=== PATIENT | female | born 1960 | race Caucasian/White ===

== ENCOUNTER 2019-08-19 12:46 | Outpatient (CLI) | payer OTHER, SELFPAY ==
--- NOTE | ~2019-08-19 | XR_ITS ---
XR knee RT 3V DATE: 08/19/2019 13:05 INDICATION: Right knee pain. No injury. TECHNIQUE: 3 views COMPARISON: None FINDINGS: There is suprapatellar knee joint effusion. There is mild periarticular spurring of the pat kayla. Knee joint spaces are relatively preserved. No fracture, dislocation, periosteal reaction or bone destruction, radiopaque intra-articular loose b bryant or chondrocalcinosis is detected. IMPRESSION: Suprapatellar knee joint effusion Reviewed, dictated and finalized at location B.
== END 2019-08-19 12:47 | disposition home or self-care (01) ==
PROVIDERS: PCP Internal Medicine; Visit Provider Nurse Practitioner
DX: M25.461 Effusion, right knee (principal)
CPT/HCPCS: 73562

== ENCOUNTER 2020-03-03 13:23 | Outpatient (CLI) | payer OTHER, SELFPAY ==
--- NOTE | 2020-03-04 14:03 | WPDSIXMINUTE ---
Six Minute Walk This is a 6 minutes walk for exertional dyspnea. Findings: The patient's resting room air oxygen saturation measured by pulse oximetry was 94% and her heart rate was 97 bpm. Patient ambulated on room air for 5 minutes and then had to rest in a chair for 2 minutes. In the five minutes she walked 46 meters and saturations remained 90% to 93%. Heart rate at the end of the five minutes was 109. There are no prior studies for comparison.
== END 2020-03-03 13:24 | disposition home or self-care (01) ==
PROVIDERS: PCP Internal Medicine; Visit Provider Internal Medicine
DX: R06.02 Shortness of breath (principal); Z90.2 Acquired absence of lung [part of]; Z98.890 Other specified postprocedural states
CPT/HCPCS: 94618

== ENCOUNTER → 2022-03-27 13:37 | Outpatient (CLI) | payer OTHER, SELFPAY ==
--- NOTE | ~2022-03-27 | MM_ITS ---
EXAMINATION: MM screening blanche BI w christen HISTORY: Screening TECHNIQUE: Craniocaudal and mediolateral oblique 3-D tomosynthesis images were obtained and synthetic 2-D images were generated. CAD analysis was submitted and interpreted. COMPARISON: Comparison to multiple prior studies sequentially, with oldest reviewed study dated 12/12. BREAST PARENCHYMAL COMPOSITION: Breast composed of scattered areas of fibroglandular density FINDINGS: There is no evidence of suspicious mass, calcification, or architectural distortion to sugg est malignancy in either breast. There has been no suspicious interval change. IMPRESSION: 1. No mammographic evidence of malignancy. 2. Recommend routine screening mammography in one year. BI-RADS Category 1: Negative Reviewed, dictated and finalized at location A. SPORT ASSISTANT
== END ==
PROVIDERS: PCP Internal Medicine; Visit Provider Internal Medicine
DX: Z12.31 Encounter for screening mammogram for malignant neoplasm of breast (principal)
CPT/HCPCS: 77063; 77067

== ENCOUNTER 2022-04-11 12:30 | Outpatient (RCR) | payer OTHER, SELFPAY ==
--- NOTE | 2022-01-30 13:36 | PTOPEVAL1 ---
Assessment and note entered by Meghan Marshall, PT Evaluation Information Assessment Status Evaluation Diagnosis dizziness Onset June 2021 Subjective Information Rahel reports: problems with dizziness for about past 5 years, but increase more lately; is not able to do all her exercises for fitness Dizziness Handicap Index self rating functional score of 24/100 Reported Pain Level Pain Score 3/10 Self Report Additional Pain Score Comments stiffness of neck Assessment PT Clinical Summary Rahel has the diagnosis of dizziness. Her self functional score with the Dizziness Handicap Index is 24/100= low perception of limitation. She reports problems with dizziness over the past 4-5 years, but recently worse. Her symptoms increase with lying flat in bed, looking up and bending down to the floor. With the evaluation, she has positive [place] to the L with severe nystagmus of eyes and vertigo symptoms. Performed Eply maneuver: rep 1- cleared 1 min & 10 sec, severe nystagmus; rep 2- cleared 40 sec, with slight nystagmus; rep 3- cleared 28 sec with slight nystagmus; Education provided to pt. Skilled PT services are indicated for clearing of anterior/posterior canal and further assessment of her vestibular system. Plan of Care Interventions Neuro Re-education,Patient/Caregiver Education, Therapeutic Activities PT Services Indicated Yes Treatment Frequency and 0-2x/wk for 5 weeks, depending upon her vestibular Duration s/s These treatments will address the objective and functional deficits as defined above. The patient will be advanced safely and appropriately in order for the patient to progress towards his/her prior level of function. Additional exercises will be introduced and as well as a comprehensive home exercise program upon discharge, if needed, ?to ensure carryover of functional gains achieved in the clinic. This treatment plan has been reviewed and agreement upon by the patient.
--- NOTE | 2022-03-06 13:24 | PTOPPROG ---
Assessment and note entered by Meghan Marshall, PT Evaluation Information Assessment Status Progress Diagnosis dizziness Onset June 2021 Subjective Information Rahel reports: yesterday, for about 6 hours had funny feeling like going in elevator; get sinus issues and headaches with changes in the weather; after last session, canal clearing- only felt off a few hours;was fine over the weekend until yesterday; going through a lot of stress- going through divorce; sometimes wake up from sleeping with body hot all over, from the inside out--? her thyroid issues; can sleep only on her R side because dizzy with on her back and on her L side; Assessment PT Clinical Summary Rahel has received 6 PT sessions. There is no dizziness reported with: - pick item up off floor, reach up and look to ceiling, walking 50' with 3 reps head motions: R/L and up/down; Dizziness Handicap Index; 4/100; dizziness increase with head: turn head to L when lying on her back and lying flat on her back; -------- Compared to the initial evaluation, she has improved with the Dizziness self assessment from 21 to 4/100; no longer has any issues with walking and head turn R/L and up/down or picking something up off the floor; With today's Babatunde hallpike testing to the L, she had nystagmus and vestibular symptoms. The goals were partially achieved. Continue PT vestibular treatment. Plan of Care Interventions Neuro Re-education,Patient/Caregiver Education, Therapeutic Activities,Therapeutic Exercise PT Services Indicated Yes Treatment Frequency and 1x/wk for 5 weeks Duration These treatments will address the objective and functional deficits as defined above. The patient will be advanced safely and appropriately in order for the patient to progress towards his/her prior level of function. Additional exercises will be introduced and as well as a comprehensive home exercise program upon discharge, if needed, ?to ensure carryover of functional gains achieved in the clinic. This treatment plan has been reviewed and agreement upon by the patient.
--- NOTE | 2022-04-11 13:06 | PTOPDC ---
Assessment and note entered by Meghan Marshall, PT Evaluation Information Assessment Status Discharge Diagnosis dizziness Onset June 2021 Subjective Information Rahel reports; things have improved, but still have some problems; have pressure on back of head when lie flat onto back--like a start of dizziness but does not go into dizziness-- that is the only thing that bothers her; sometimes turning over in bed will bother her; went on a 5 hour trip to see her sister and did not have any problems on the car ride, was even able to look at her phone when she was the passenger on the trip; has neck tightness/stiffness; am now able to walk on trampoline and listen to music for exercises; continue to have occular migraines with barometric pressure changes and sinus issues; no headache pain; and has allergy/sinus problems- takes allergy med PRN; is pleased with how well she is doing; agrees to d/c from PT; Reported Pain Level Pain Score 0: Self Report Additional Pain Score Comments no pain in neck, but neck is tight and stiff; educated to continue with neck stretching and ROM exercises Assessment PT Clinical Summary Rahel has received 10 PT sessions for dizziness. She has improved with less vestibular symptoms and increased activity level. The only reported activity that causes her any issues is lying supine and rolling over in bed. Dizziness Handicap Index score has improved to 4/100. During the reassessment, did not elicit any vestibular symptoms. She has returned to her normal activity level. Rahel continues to have issues with her sinus/ allergies, occular migraines and neck tightness. Education has been completed for home exercises and safety with mobility. The goals were achieved. Discharge PT services. Plan of Care PT Services Indicated No
== END 2022-04-11 16:10 | disposition home or self-care (01) ==
LOC: ANHPT 12:30
PROVIDERS: PCP Internal Medicine; Visit Provider Internal Medicine
DX: R42 Dizziness and giddiness (principal)
CPT/HCPCS: 97110; 97112; 97140; 97161; 97530

== ENCOUNTER 2023-01-30 14:25 | Emergency (ER) | payer OTHER, SELFPAY ==
--- NOTE | ~2023-01-30 | CT_ITS ---
EXAMINATION: CT soft tissue neck w con DATE: 01/30/2023 16:48 INDICATION: Right neck swelling. TECHNIQUE: Computed tomography (CT) of the neck was performed with 75 mL Omnipaque-350 intravenous co ntrast. Automated exposure control and iterative reconstruction technique were employed. The dose-brandon gth product was 470.52 mGy-cm. COMPARISON: PET/CT 01/28/2006 FINDINGS: There is an infarct in right temporal occipital region in the expected distribution of righ t posterior cerebral artery. There are likely changes of ocular lens replacement surgeries. The right parotid gland is enlarged with surrounding fat stranding, consistent with parotiditis. No sialolith. There is mild scarring in right lung upper lobe. There is plaque in the proximal internal carotid ar teries with 0% stenosis relative to normal distal artery lumen diameters. There is no cervical lympha denopathy. There is severe cervical spondylosis. IMPRESSION: 1. Right-sided parotiditis. No sialolith. 2. Infarct in right temporal occipital region, likely subacute or chronic. Reviewed, dictated and finalized at location E. ER MACHINIST
[2023-01-30 14:26] VITALS: BP 140/92; PULSE 115; RESP 18; TEMP 37.1; O2SAT 99
[2023-01-30 14:52] VITALS: BP 164/94; PULSE 76; RESP 20; O2SAT 98
--- NOTE | 2023-01-30 15:20 | ED.GENADULT ---
HPI - General Adult General Chief complaint: Unspecified Stated complaint: neck swelling Time Seen by Provider: 01/30/23 15:19 Source: patient and family (son) Limitations: no limitations History of Present Illness HPI narrative: Patient was eating an orange at approximately 2:15pm and developed acute onset right sided neck swelling. No fevers. No issues with ROM. This has never happened before. It feels tender. No issues managing secretions. No dysphagia or odynophagia or dysphonia. Does not know if she was vaccinated against mumps. Related Data Home Medications Medication Instructions Recorded Confirmed alprazolam 1 mg tablet 1 mg PO TID PRN 03/18/19 01/18/23 quetiapine 200 mg tablet,extended See Rx Instructions PO .COMPLEX 03/18/19 01/18/23 release 24 hr (Seroquel XR) apixaban 2.5 mg tablet (Eliquis) 2.5 mg PO BID 03/26/19 01/18/23 vortioxetine 20 mg tablet 20 mg PO DAILY 03/26/19 01/18/23 (Trintellix) nystatin 100,000 unit/gram topical 1 applic topical BID PRN 01/02/22 01/18/23 cream Allergies Allergy/AdvReac Type Severity Reaction Status Date / Time Penicillins Allergy Severe Hives / Verified 01/30/23 14:49 Red Face Sulfa (Sulfonamide Allergy Severe Hives / Verified 01/30/23 14:49 Antibiotics) Red Face; throat swells erythromycin base AdvReac Intermediate severe Verified 01/30/23 14:49 vomiting and diarrhea hydrocodone AdvReac Unknown vomiting Verified 01/30/23 14:49 nitrofurantoin AdvReac Unknown nausea and Verified 01/30/23 14:49 loss of appetite tetracycline AdvReac Unknown vomiting Verified 01/30/23 14:49 and diarrhea NITROFURANTOIN MACROCRYSTAL AdvReac Unknown nausea and Uncoded 01/18/23 10:30 loss of appetite PMFSH Past Medical History Medical History Adrenal abnormality Anxiety Chondromalacia, patella Chronic deep vein thrombosis (DVT) of both lower extremities CKD (chronic kidney disease) stage 3, GFR 30-59 ml/min Degenerative joint disease of knee Depression Essential (primary) hypertension GERD without esophagitis Bridgette filter in place Histoplasmosis History of CVA (cerebrovascular accident) History of retroperitoneal fibrosis History of thrombosis Hypothyroidism (acquired) Impacted cerumen of both ears Left homonymous hemianopsia Lymphedema Medial meniscus, posterior horn derangement Mixed hyperlipidemia Nocturnal hypoxemia Positive colorectal cancer screening using Cologuard test Psychophysiological insomnia Right knee pain Seasonal allergies Thrombophlebitis Vision abnormalities Surgical History Surgical History H/O tubal ligation History of cholecystectomy History of total hysterectomy with bilateral salpingo-oophorectomy (BSO) Family History Family History Mother Family history of emphysema Alcoholism Father Family history of heart disease in male family member before age 55 Acute myocardial infarction Other , Aunt Carcinoma of colon Sibling Alcoholism Social History Social History Social History: Has a son Years smoked: 20 Smoking status: Former smoker Tobacco type: cigarettes Second hand tobacco smoke exposure: No Smoking end date: 11/11/05 Alcohol intake: never Substance use: current Substance use type: marijuana Other substance usage details: smokes marijuana Last use: 07/22/22 Lack of Transportation: No Exam Narrative: GENERAL: Well-appearing, well-nourished, and in no acute distress. HEAD: Normocephalic, atraumatic. No mastoiditis. EYES: Non injected, non icteric ENT: Nares clear, no rhinorrhea or epistaxis. Swelling extends into posterior oropharynx with very slight displa
[2023-01-30 15:58] LABS: Basophils Percent Auto 0.4 % (0.2-1.2); Eosinophils Absolute Auto 0.2 K/mm3 (0-0.3); Eosinophils Percent Auto 1.9 % (0-4.4); Hematocrit 47.3 % (37.0-47.0); Hemoglobin 14.6 g/dL (12.0-15.0); Immature Granulocyte Absolute 0.03 K/mm3 (0.00-0.031); Immature Granulocyte Percent A 0.3 % (0-0.5); Lymphocytes Absolute Auto 1.71 K/mm3 (0.9-3.2); Lymphocytes Percent Auto 17.7 % (18.3-44.2); Mean Corpuscular HGB Conc 30.9 g/dl (32-36); Mean Corpuscular Hemoglobin 30.4 pg (26-34); Mean Corpuscular Volume 98.5 fl (80-100); Mean Platelet Volume 10.9 fl (7.4-10.4); Monocytes Percent Auto 10.2 % (2.6-8.5); Neutrophils Absolute Auto 6.7 K/mm3 (1.3-6.7); Neutrophils Percent Auto 69.5 % (45.5-73.1); Platelet Count Result 203 k/mm3 (150-375); Red Cell Distribution Width 13.1 % (11.5-14.5); White Blood Count 9.7 K/mm3 (4.5-10.0)
[2023-01-30 16:16] LABS: Anion Gap 3 mmol/L (8-16); Blood Urea Nitrogen 23 mg/dL (7-17); Calcium 9.2 mg/dL (8.4-10.2); Carbon Dioxide 31 mmol/L (22-30); Chloride 104 mmol/L (98-107); Estimated CRCL calculation 41 ml/min; Estimated Glomerular Filt Rate 50; Glucose 78 mg/dL (65-110); Potassium 4.4 mmol/L (3.4-5.0); Sodium 138 mmol/L (137-145)
[2023-01-30] MEDS: LACTATED RINGERS 1,000 ML 999 ML IV CONT (17:34)
[2023-01-30] MEDS: CLINDAMYCIN 300 MG in DEXTROSE 5% IN WATER 50 ML 104 MG IVPB (18:13)
[2023-02-01 14:41] LABS: Mumps Virus IgG Antibody <9.00 AU/mL
[2023-02-02 08:54] LABS: Mumps Virus IgM Antibody <1:20
== END 2023-01-30 18:45 | disposition home or self-care (01) ==
PROVIDERS: Emergency Provider Student in an Organized Health Care Education/Training Program; PCP Family Medicine
DX: K11.21 Acute sialoadenitis (principal); I12.9 Hypertensive chronic kidney disease with stage 1 through stage 4 chronic kidney disease, or unspecified chronic kidney disease; N18.30 Chronic kidney disease, stage 3 unspecified; E03.9 Hypothyroidism, unspecified; E78.2 Mixed hyperlipidemia; K21.9 Gastro-esophageal reflux disease without esophagitis; M17.9 Osteoarthritis of knee, unspecified; F32.A Depression, unspecified; F41.9 Anxiety disorder, unspecified; Z86.718 Personal history of other venous thrombosis and embolism; Z86.73 Personal history of transient ischemic attack (TIA), and cerebral infarction without residual deficits; Z87.891 Personal history of nicotine dependence; Z90.710 Acquired absence of both cervix and uterus; Z90.722 Acquired absence of ovaries, bilateral; Z90.79 Acquired absence of other genital organ(s); Z79.01 Long term (current) use of anticoagulants
CPT/HCPCS: 36415; 70491; 80048; 85025; 86735; 96361; 96365; 99284; J7120; Q9967

== ENCOUNTER 2023-05-31 12:15 | Outpatient (CLI) | payer OTHER, SELFPAY ==
--- NOTE | ~2023-05-31 | DEXA_ITS ---
Bone Density Report Name: BHARATH POE Age: 62 Sex: Female Ethnicity: White Date of : 1960 Indication: osteopenia; hysterectomy; postmenopausal Referring Provider: DOMINICK DINERO Study: Bone densitometry was performed. Exam Date: May 31, 2023 Accession number: [id number] Bone Density: Region BMD T-score Z-score Classification AP Spine (L1, L3, L4) 0.910 -1.3 0.4 Osteopenia Femoral Neck (Left) 0.765 -0.8 0.7 Normal Total Hip (Left) 0.851 -0.7 0.4 Normal Femoral Neck (Right) 0.642 -1.9 -0.4 Osteopenia Total Hip (Right) 0.826 -1.0 0.2 Normal Total Hip Mean 0.839 -0.9 0.3 Normal World Health Organization criteria for BMD impression classify patients as: Normal (T-score at or above -1.0), Osteopenia (T-score between -1.0 and -2.5), or Osteoporosis (T-score at or below -2.5). 10-year Fracture Risk(1): Major Osteoporotic Fracture 8.9% Hip Fracture 1.1% Reported Risk Factors: [place] (), Neck BMD=0.642, BMI=37.9 (1) FRAX(R) Version 3.08. Fracture probability calculated for an untreated patient. Fracture probability may be lower if the patient has received treatment. Previous Exams: Region Exam Age BMD T-score BMD Change BMD Change Date g/cm2 vs Baseline vs Previous AP Spine(L1, L3, L4) 05/31/2023 62 0.910 -1.3 0.015 0.001 09/26/2009 48 0.909 -1.3 0.014 0.046* 02/24/2007 46 0.863 -1.7 -0.032* -0.032* 01/28/2004 43 0.895 -1.4 Total Hip(Left) 05/31/2023 62 0.851 -0.7 -0.217* -0.015 09/26/2009 48 0.865 -0.6 -0.202* -0.017 02/24/2007 46 0.883 -0.5 -0.185* -0.185* 01/28/2004 43 1.067 1.0 Total Hip(Right) 05/31/2023 62 0.826 -1.0 -0.123* -0.045* 09/26/2009 48 0.871 -0.6 -0.078* -0.078* 02/24/2007 46 0.949 0.1 0.000 0.000 01/28/2004 43 0.949 0.1 *Denotes significance at 95% confidence level, LSC for AP Spine = 0.022 g/cm2, LSC for Total Hip = 0.027 g/cm2 Clinical Information Provided by Patient: Has used the following medications: Vitamin D, LEVOTHYROXINE Has the following medical conditions: Hysterectomy Patient maximum height was 58.0 Menopause Age: 41 Drinks caffeinated beverages Onset of menses at age 8 Number of children 2 Impression: The patient has low bone mass, based on the Right Femoral Neck T-score. The patient has an estimated ten-year risk of hip fracture of 1.1% and an estimated ten-year risk of major fracture of 8.9%, based on the WHO FRAX algorithm. The BMD for the Total Hip(Right) decreased, changing by -0.045 since the last DXA exam. Discussion: BONE DENSITY IS LOW AT ONE OR MORE SKELETAL SITES. This patient's lowest T-score is low at one or more skeletal sites. It meets the World Health Organization's (WHO) criteria for ?low bone mass? (T-score between -1.0 and -2.5). The patient's 10-year risk of fracture as calculated by FRAX is less than the threshold where pharmacological therapy is recommended by the National Osteoporosis Foundation (NOF). However, all treatment decisions require clinical judgment and consideration of individual patient factors, including patient preferences, comorbidities, previous drug use, risk factors not captured in the FRAX model (e.g., frailty, falls, vitamin D deficiency, increased bone turnover, interval significant decline in bone density) and possible under or overestimation of fracture risk by FRAX. The patient should follow a healthful lifestyle (good nutrition with adequate calcium and vitamin D, and appropriate weight-bearing exercise). Follow-Up: Consider repeating this study in 2 years to reassess this patient's status, or sooner if there is some new clinical indication. Reported by: BRIAN on 05/31/2023 12:49:00 PM. Reviewed, dictated and finalized at location ASam HARDEN
== END 2023-05-31 12:16 ==
LOC: MICIMG 12:16
PROVIDERS: PCP Physician Assistant Medical; Visit Provider Physician Assistant Medical
DX: N95.1 Menopausal and female climacteric states (principal); M85.88 Other specified disorders of bone density and structure, other site
CPT/HCPCS: 77080

== ENCOUNTER 2023-11-05 13:26 | Outpatient (CLI) | payer OTHER, MEDICARE, SELFPAY ==
--- NOTE | ~2023-11-05 | XR_ITS ---
EXAMINATION: XR lg joint inject/asp w image DATE: 11/05/2023 14:13 INDICATION: Left hip arthritis. TECHNIQUE: A time-out was performed to verify the patient's name, date of , and procedure to b e performed. The procedure including the risks, benefits, and alternatives was discussed with the pat ient. Risks discussed included bleeding and infection. The patient understood the risks and agreed to proceed. The skin overlying the left hip joint was prepped and draped in usual sterile fashion. An esthetic was administered with 1% lidocaine subcutaneously. A 22 G needle was advanced under fluoros copic guidance into the joint. Subsequently, injectate consisting of 2 mL 0.5% bupivacaine and 1 mL 80 mg/mL Depo-Medrol was instilled. The needle was removed and the entry site was cleaned and dresse d. There were no immediate complications. Fluoroscopy exposure time was 0.0 minutes. The total numbe r of images was 1. FINDINGS: Real-time fluoroscopy demonstrates the needle in the left hip joint. IMPRESSION: 1. Fluoroscopy guided left hip joint injection of local anesthetic and steroid. Reviewed, dictated and finalized at location A.
== END 2023-11-05 13:27 | disposition home or self-care (01) ==
PROVIDERS: PCP Family Medicine; Visit Provider Orthopaedic Surgery
DX: M16.12 Unilateral primary osteoarthritis, left hip (principal)
CPT/HCPCS: 20610; 77002; J1010

== ENCOUNTER 2024-08-11 14:08 | Outpatient (CLI) | payer OTHER, MEDICARE, SELFPAY ==
--- NOTE | ~2024-08-11 | XR_ITS ---
EXAMINATION: XR lg joint inject/asp w image DATE: 08/11/2024 15:28 INDICATION: Left hip pain TECHNIQUE: Radiographs of the left hip were obtained. A time-out was performed to verify the patient's name, date of , allergies and and procedure t o be performed. The procedure including the risks, benefits, and alternatives was discussed with the patient. Risks d iscussed included bleeding and infection. The patient understood the risks and agreed to proceed. The skin overlying the left hip joint was prepped and draped in usual sterile fashion. Anesthetic wa s administered with 1% lidocaine subcutaneously. A 22 G spinal needle was advanced under fluoroscopic guidance into the left hip joint. Injectate con sisting of 1:4 1% lidocaine, and 1:2 Omnipaque 240 was instilled to confirm appropriate placement wit hin the right joint capsule. Once appropriate positioning was confirmed, an injectate consisting of 5 % Marcaine (5 mL) along with 80 mg of Depo-Medrol, and 4 mL of 1% lidocaine was instilled. The needle was then removed and the entry site was cleaned and dressed. There were no immediate complications. Fluoroscopy exposure time was 1.8 minutes. DOSE AREA PRODUCT: 18.1 Gy-cm2 The total number of images was 3. FINDINGS: Real-time fluoroscopy demonstrates the needle and contrast in the left hip joint. IMPRESSION: Technically successful fluoroscopic guided left hip joint injection, as detailed above. Reviewed, dictated and finalized at location A. IMPRESSION: Technically successful fluoroscopic guided left hip joint injection, as detaile d above.
--- OUTSIDE RECORDS SUMMARY | 2024-08-11 14:11 | XMS_ITS | Continuity of Care Document ---
Author Organization [facility] Address [address] [place] [address] [place] [address] Phone Care Team Providers Care Customer Operations Associate Name Role Phone David OD, Dg Unavailable Unavailable Advance Directives Directive Yes / No Effective Date File Name No Information Encounters Encounter Description Practice Location Reason(s) For Visit Diagnoses Date Provider Providers Copied on Encounter [facility], [address], [place], [place], [id number], [place] tel:[phone] [facility] [place] No Information Aug-0 3-200 1 David OD Dg. [address] , [address], [place], [address], [place]. tel:[phone] Family History Family Member Type Diagnosis Age At Onset No Information Payers Payer name Insurance type Covered democrat ID Authoriza tion(s) No Information Social History [...]
--- OUTSIDE RECORDS SUMMARY | 2024-08-11 14:11 | XMS_ITS | Clinical Summary ---
Author Organization [facility] Address [address] [place] [address] Care Team Providers Care Credit Card Specialist Name Role Phone Shani Duncan MD Primary Care Provider [phone] Allergies Active Allergy Reactions Criticality Noted Date Comments Clindamycin Other (See Comments) 10/22/2016 heartburn Hydrocodone-Acetaminophe n Nausea and Vomiting Low 10/22/2016 Penicillamine Rash Medium 03/25/2015 Penicillins Rash Low 10/22/2016 Sulfa (Sulfonamide Antibiotics) Shortness of Breath/Wheezing,Anap hylaxis High 03/25/2015 Throat swelling Medications rosuvastatin (CRESTOR) 20 mg tablet Take 20 mg by mouth daily at bedtime. Active QUEtiapine (SEROquel XR) 200 mg Extended Release 24 hour tablet Take 200 mg by mouth late in the day. Active vortioxetine (TRINTELLIX,SHIRA NTELLIX) 20 mg tablet Take 20 mg by mouth daily. Active ALPRAZolam (XANAX) 1 mg tablet Take 1 mg by mouth 3 times daily as needed for Anxiety. Active fluticasone (FLONASE) 50 mcg/spray Preston, Suspension Administer 2 Sprays in each nostril daily. Active levothyroxine 150 mcg tablet Alternates this and 137 8 Active NYSTOP 100,000 unit/gram powder APPLY POWDER TOPICALLY TWICE DAILY NEEDED 0 Active apixaban (Eliquis) 2.5 mg tabletIndicatio ns:Thrombophleb itis,Thrombophl ebitis/phlebiti s TAKE 1 TABLET BY MOUTH TWICE DAILY 180 Tablet 3 4 Active Active Problems Problem Noted Date Diagnosed Date Morbid obesity with BMI of 40.0-44.9, adult 10/13 Thrombophlebitis/phlebitis 10/22/2016 Obesity (BMI 35.0-39.9 without comorbidity) 10/12 Family History Medical History Relation Name Comments Liver Disease Brother Cancer Father Heart Disease Father Respiratory Disease Mother Relation Name Status Comments Brother Father Alive Mother Alive Social History Tobacco Use Types Packs/Day Years Used Date Smoking Tobacco: Former Cigarettes 0.3 20 1 986 - 2006 Tobacco Cessation:Counseling Given: Not Answered Alcohol Use Standard Drinks/Week Comments Yes 0 (1 standard drink = 0.6 oz pur e alcohol) occasional Comments No Sex and Gender Information Value Date Recorded Sex Assigned at Not on file Legal Sex Female 9:27 AM CDT Gender Identity Not on file Sexual Orientation Not on file Last Filed Vital Signs Vital Sign Reading Time Taken Comments Blood Pressure 108/69 04/24/2023 2:50 PM CDT Pulse 78 04/24/2023 2:50 PM CDT Temperature 36.8 C (98.2 F) 04/24/2023 2:50 PM CDT Respiratory Rate 14 04/24/2023 2:50 PM CDT Oxygen Saturation 93% 04/24/2023 2:50 PM CDT Inhaled Oxygen Concentration - - Weight 79.8 kg (176 lb) 04/24/2023 2:50 PM CDT Height 144.8 cm (4' 9) 12/26/2020 10:58 AM MANAGER ENTERPRISE Body Mass Index 38.09 12/26/2020 10:58 AM MANAGER ENTERPRISE Plan of Treatment Health Maintenance Due Date Last Done Comments Pre-Diabetes and Diabetes Screening 1960 DTAP/TDAP/TD VACCINES (1 - Tdap) 1977 BREAST CANCER SCREENING 1998 COLORECTAL SCREENING 11/19/2003 Colorectal Cancer Screening 11/19/2003 FIT-DNA Q 3 years 11/19/2003 FIT/FOBT Q 1 year 11/19/2003 Flex Sig/CT Colonography Q 5 years 11/19/2003 ZOSTER VACCINE (1 of 2) 2008 PNEUMOCOCCAL VACCINE 50+ YEA RS (2 of 2 - PCV) 11/17/2011 11/16/2010 RSV VACCINE (60+ or ) (1 - Risk 60-74 years 1-dose series) 2018 OSTEOPOROSIS SCREENING 11/19/2023 INFLUENZA VACCINE (#1) 2024 4, 12/13/2011, 11/16/2010 Insurance CIGNA PPO CIGNA PPO Care Teams Credit Card Specialist Relationship Specialty Start Date End Date Shani Duncan MD [address] [place] [id number] PCP - General Family Practice 04/24/23
--- OUTSIDE RECORDS SUMMARY | 2024-08-11 14:11 | XMS_ITS | Patient Health Record ---
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 Name Role Phone Shani Duncan MD Primary Care Provider Royce Malone Unavailable [phone] Allergies Allergen (clinical drug ingredient) Drug/Non Drug Allergy documented on EMR Reaction Allergy Type Onset Date Status Substance with sulfonamide structure and antibacterial mechanism of action (substance) SULFA (SULFONAMIDE ANTIBIOTICS) (uncoded) Unknown Allergy 06/04/2023 Active nitrofurantoin, macrocrystals / nitrofurantoin, monohydrate Macrobid Unknown Drug Allergy 06/04/2023 Active Vicodin Unknown Drug Allergy 06/04/2023 Active Substance with penicillin structure and antibacterial mechanism of action (substance) Penicillins Unknown Drug Allergy 06/04/2023 Active Results Component Value Reference Range Notes UDT Reviewed date:09/06/2023 01:03:19 PM Interpretation: Performing Lab: Notes/Report: THC P 0 - 50 ng/ml Cocaine N 0 - 300 ng/ml Amphetamine N 0 - 1000 ng/ml Buprenorphine (BUP) N 0 - 10 ng/ml Secobarbital (Bar) N 0 - 300 ng/ml Oxazepam (BZO) P 0 - 300 ng/ml 2-xlzwmrefcg-6,8-fbglpjxl-9,3-diphenylpyrrolidine (CYNTHIA P) N 0 - 300 ng/ml Methamphetamine (MET) N 0 - 1000 ng/ml Methylenedioxymethamphetamine (MDMA) N 0 - 500 ng/ml Morphine (MOP 300/[id number]) N 0 - 300 ng/ml Methadone (MTD) N 0 - 300 ng/ml Phencyclidine (PCP) N 0 - 25 ng/ml Nortriptyline (TCA) N 0 - 1000 ng/ml Oxycodone N 0 - 300 ng/ml x N 0 - 300 ng/ml Reason For Referral No Information Medications Medication SIG (Take, Route, Frequency, Duration) Notes Start Date End Date Status QUEtiapine Fumarate ER 200 MG TAKE 1 TABLET BY MOUTH DAILY; Duration: 30 Active SEROquel XR 200 MG Oral 06/04/2023 Active Fluticasone Propionate Diskus 50 MCG/ACT Inhalation *Reorder from [facility] for eRx and Interaction Alerts* 06/04/2023 Active Nystatin 410826 UNIT/GM External 06/04/2023 Active Eliquis 2.5 MG Oral 06/04/2023 Acti ve ALPRAZolam 1 MG 2.5 tablets Oral daily; Duration: 30 days take one tablet twice daily and one half tablet daily 08/07/2024 Active Trintellix 20 MG 1 tablet Oral Once a day; Duration: 30 days Active Levothyroxine Sodium 175 MCG Oral 06/04/2023 Active Levothyroxine Sodium 137 MCG Oral 06/04/2023 Active Immunizations Vaccine Route Administration Date Status Comme nts Pfizer Biontech Covid-19 Vac cine 2nd dose Unknown 04/14/2020 Administered Pfizer Biontech Covid-19 Vac cine 2nd dose Unknown 05/05/2020 Administered Pfizer Biontech Covid-19 Vac cine 2nd dose Unknown 12/02/2020 Administered Novel [id number], preservative free Unknown 12/04/2017 Administered Influenza, unspecified formulation Unknown 11/21/2011 A dministered Influenza, unspecified formulation Unknown 12/11/2012 A dministered Influenza, seasonal, injecta ble, preservative free, 3 yrs and above Unknown 12/05/2017 Administered Influenza, injectable, MDCK, preservative free Unknown 12/24/2018 Administered Influenza virus vaccine, quadrivalent (IIV4), split virus, 0.25 mL dosage Unknown 12/11/2015 Administered Influenza virus vaccine, quadrivalent (IIV4), split virus, 0.25 mL dosage Unknown 12/05/2016 Administered Influenza virus vaccine, quadrivalent (IIV4), split virus, 0.25 mL dosage Unknown 11/30/2017 Administered Influenza virus vaccine, quadrivalent (IIV4), split virus, 0.25 mL dosage Unknown 11/12/2018 Administered Social History Sex Assigned At : Social History Observation Description Sex Assigned At Female Problems Problem Type SNOMED Code ICD Code Onset Dates Problem Status W/U Status Risk Notes Problem Recurrent major depression in full remission (98435826) Major depressive disorder, recurrent, in full remission (F33.42) Active confirmed Problem Generalized anxiety disorder (80711623) Generalized anxiety disorder (F41.1) Active confirmed Problem Primary insomnia (0975537) Primary insomnia (F51.01) Active confirmed Vital Signs Heart Rate 74 /min 03/04/2024 Height-cm 152.40 cm 03/04/2024 Blood pressure diastolic 82 mm Hg 03/04/2024 Weight-kg 88.91 kg 03/04/2024 Height 60.00 in 03/04/2024 Blood pressure systolic 142 mm Hg 03/04/2024 Weight 196 lbs 03/04/2024 BMI 38.27 kg/m2 03/04/2024 Encounters Encounter Location Date Provider Diagnosis [facility] [place] [id number] [address] 09/04/2023 Royce Jacques Generalized anxiety disorder F41.1 ; Primary insomnia F51.01 and Major depressive disorder, recurrent, in full remission F33.42 [facility] [address] [address] 12/05/2023 Royce Jacques Generalized anxiety disorder F41.1 ; Primary insomnia F51.01 and Major depressive disorder, recurrent, in full remission F33.42 [facility] [address] [address] 03/04/2024 Royce Jacques Generalized anxiety disorder F41.1 ; Primary insomnia F51.01 and Major depressive disorder, recurrent, in full remission F33.42 [facility] [address] [place] [address] 05/28/2024 Royce Jacques Generalized anxiety disorder F41.1 ; Primary insomnia F51.01 and Major depressive disorder, recurrent, in full remission F33.42 [facility] [address] [address] 01/03/2024 Royce Jacques Major depressive disorder, recurrent, in full remission F33.42 [employer], [facility] [address] [place] [address] 01/22/2024 Royce Jacques [facility] [employer] [facility] [address] [place] [address] 08/07/2024 Royce Jacques Generalized anxiety disorder F41.1 Assessments Encounter Date Diagnosis (ICD Code) Assessment Notes Treatment Notes Treatment Clinical Notes Section Notes 01/03/2024 Major depressive disorder, recurrent, in full remission (ICD-10 - F33.42) 03/04/2024 Generalized anxiety disorder (ICD-10 - F41.1) 09/04/2023 Generalized anxiety disorder (ICD-10 - F41.1) 09/04/2023 Primary insomnia (ICD-10 - F51.01) 12/05/2023 Generalized anxiety disorder (ICD-10 - F41.1) 1. Major Depressive Disorder: - Patient denies current depressive symptoms and reports keeping busy and attending the gym when possible. - Currently on Trintellix 20 mg daily Plan: - Continue current medication regimen. - Refill Trintellix prescription. 2. Generalized Anxiety Disorder: - Patient reports anxiety related to recent divorce trial and financial uncertainty. - Has been managing anxiety with medication and has tapered down to two and a half Xanax tablets daily. - Currently on Quetiapine 200 mg daily, Alprazolam 1 mg (two and a half tablets daily) Plan: - Continue current medication regimen. - Refill Quetiapine and Alprazolam prescriptions. 3. Divorce-relate d stress: - Patient recently underwent a divorce trial and is awaiting the space buyer's decision. - Reports feeling a weight lifted after confronting her ex- about financial issues. Plan: - Encourage the patient to continue engaging in healthy coping strategies, such as attending the gym and staying busy. - Monitor the patient's mental health during follow-up appointments. Follow-up: - Schedule a 3-month follow-up appointment to assess the patient's mood, anxiety, and medication effectiveness. - Have the office staff call the patient to schedule the appointment. 05/28/2024 Generalized anxiety disorder (ICD-10 - F41.1) 08/07/2024 Generalized anxiety disorder (ICD-10 - F41.1) 09/04/2023 Major depressive disorder, recurrent, in full remission (ICD-10 - F33.42) 05/28/2024 Primary insomnia (ICD-10 - F51.01) stable 12/05/2023 Primary insomnia (ICD-10 - F51.01) stable 1. Major Depressive Disorder: - Patient denies current depressive symptoms and reports keeping busy and attending the gym when possible. - Currently on Trintellix 20 mg daily Plan: - Continue current medication regimen. - Refill Trintellix prescription. 2. Generalized Anxiety Disorder: - Patient reports anxiety related to recent divorce trial and financial uncertainty. - Has been managing anxiety with medication and has tapered down to two and a half Xanax tablets daily. - Currently on Quetiapine 200 mg daily, Alprazolam 1 mg (two and a half tablets daily) Plan: - Continue current medication regimen. - Refill Quetiapine and Alprazolam prescriptions. 3. Divorce-relate d stress: - Patient recently underwent a divorce trial and is awaiting the space buyer's decision. - Reports feeling a weight lifted after confronting her ex- about financial issues. Plan: - Encourage the patient to continue engaging in healthy coping strategies, such as attending the gym and staying busy. - Monitor the patient's mental health during follow-up appointments. Follow-up: - Schedule a 3-month follow-up appointment to assess the patient's mood, anxiety, and medication effectiveness. - Have the office staff call the patient to schedule the appointment. 03/04/2024 Primary insomnia (ICD-10 - F51.01) stable 05/28/2024 Major depressive disorder, recurrent, in full remission (ICD-10 - F33.42) 03/04/2024 Major depressive disorder, recurrent, in full remission (ICD-10 - F33.42) 12/05/2023 Major depressive disorder, recurrent, in full remission (ICD-10 - F33.42) 1. Major Depressive Disorder: - Patient denies current depressive symptoms and reports keeping busy and attending the gym when possible. - Currently on Trintellix 20 mg daily Plan: - Continue current medication regimen. - Refill Trintellix prescription. 2. Generalized Anxiety Disorder: - Patient reports anxiety related to recent divorce trial and financial uncertainty. - Has been managing anxiety with medication and has tapered down to two and a half Xanax tablets daily. - Currently on Quetiapine 200 mg daily, Alprazolam 1 mg (two and a half tablets daily) Plan: - Continue current medication regimen. - Refill Quetiapine and Alprazolam prescriptions. 3. Divorce-relate d stress: - Patient recently underwent a divorce trial and is awaiting the space buyer's decision. - Reports feeling a weight lifted after confronting her ex- about financial issues. Plan: - Encourage the patient to continue engaging in healthy coping strategies, such as attending the gym and staying busy. - Monitor the patient's mental health during follow-up appointments. Follow-up: - Schedule a 3-month follow-up appointment to assess the patient's mood, anxiety, and medication effectiveness. - Have the office staff call the patient to schedule the appointment. 03/04/2024 Other 1. Anxiety related to financial and legal stressors: - Continue Xanax 2.5 tablets per day as needed for anxiety. Plan: - Encourage the patient to seek legal advice and assistance for her ongoing court case. - Recommend exploring stress management techniques, such as deep breathing exercises, meditation, or mindfulness practices. 2. Depression: - Continue Trintellix 20 mg daily. - Continue Quetiapine ER 200 mg daily. Plan: - Encourage the patient to maintain a routine, including regular physical activity and social interactions. - Monitor the patient's mood and any changes in her thoughts or behaviors. 3. Insomnia: - Patient's sleep is not currently affected by her anxiety and depression. Plan: - Encourage the patient to maintain good sleep hygiene, including a consistent sleep schedule and a relaxing bedtime routine. 4. Social isolation: Plan: - Encourage the patient to continue [facility] and participating in social activities, such as the [employer] republic[employer] she mentioned. - Discuss the possibility of joining support groups or engaging in community activities to foster new connections and friendships. 5. Anger and violent thoughts: Plan: - Monitor the patient's thoughts and feelings towards her ex-, ensuring that she does not intend to act on any violent thoughts. - Recommend exploring healthy outlets for her anger, such as journaling, art, or physical activity. 6. Family estrangement: Plan: - Encourage the patient to continue seeking opportunities for communication and connection with her children, while respecting their boundaries and decisions. 7. Medication management: Plan: - Continue current medications as prescribed. - Refill prescriptions at [facility] in [place]. Follow-up: - Schedule a follow-up appointment in 4 weeks to monitor the patient's progress and adjust the treatment plan as needed. 05/28/2024 Other Rahel Poe, female patient with history of stroke, presents for medication management and reports concerns about her son's recent head injury. Mood disorder Assessment: Patient reports good response to current medication regimen. Trintellix is noted to be effective in maintaining mood stability, allowing for improved cognitive processing and preventing catastrophic thinking. Patient demonstrates insight into her improved coping skills, stating she did not spin out with a recent stressor (hot water heater issue). Plan: - Continue Trintellix (dose not specified) - Continue quetiapine 200 mg (frequency and route not specified) - Continue alprazolam 2.5 mg daily (route not specified) - Refills sent for all medications - Patient to call pharmacy for alprazolam refills monthly due to controlled substance regulations - Follow up as scheduled the note is transcribed using speech recognition software. It is a reflection of a visit with the patient. It might have some inaccuracy, including medication names and transcribing errors, though efforts have been made to correct them. Plan Of Treatment Next Appt Details Provider Name:Royce hampton, 08/27/2024 01:00:00 PM, [address] [facility] [address] [facility] [address], [place], [address], Insurance Providers Payer Name Payer Address Payer Phone Subscriber Number Group Number Insured Name Patient Relationship to Insured Coverage Start Date Coverage End Date [employer] [address] [place] [address] [id number] RAHEL POE Self - patient is the insured Medicare-I l Medicare [address] [facility] [place] [address] [id number] RAHEL POE Self - patient is the insured Medical (General) History Medical History History ICD Code Problems: Generalized anxiety disorder Primary insomnia Recurrent major depression in remission Severe recurrent major depression withou t psychotic features , Imported from Highlights: On January 24, 2024, the patient visited Dr. Oskar Martin at [facility] for a medication refill. During this visit, the patient was dealing with Thrombophlebitis, a condition characterized by blood clotting and inflammation in the veins. The patient's medical records also indicate a history of phlebitis, an inflammation of the veins. Surgical History Surgery Date(Month/Year) Hysterectomy (60335) Removal of gallbladder (73018) Any surgical history Cataract surgery (18047) 02/12/2008
== END 2024-08-11 14:09 | disposition home or self-care (01) ==
PROVIDERS: PCP Family Medicine; Visit Provider Orthopaedic Surgery
DX: M16.12 Unilateral primary osteoarthritis, left hip (principal)
CPT/HCPCS: 20610; 77002; J1010; Q9966

== ENCOUNTER 2024-10-13 14:42 | Outpatient (RCR) | payer MEDICARE, OTHER, SELFPAY ==
--- NOTE | 2024-10-13 16:10 | OPREHPOC ---
Outpatient Therapy Plan of Care This is a Multidisciplinary Plan of Care that may contain components documented by all disciplines (PT, OT, and ST.) PT Problem 1 PT Problem #1 Knowledge Deficit PT Goal 1 Goal / Goal Update *independent with HEP Target Visit 5 PT Problem 2 PT Problem #2 Pain PT Goal 1 Goal / Goal Update * pt report pain of L hip at 3/10 at worst Target Visit 5 PT Problem 3 PT Problem #3 Impaired Strength PT Goal 1 Goal / Goal Update 1*increase strength of L hip to gross of 4+/5 to improve mobility 2* standing bilateral PF x 20 reps without loss of balance 3* single leg standing L x 8 seconds with good stability 4* pt ambulate with slight lateral trunk motion Target Visit 5 PT Problem 4 PT Problem #4 Impaired Functional Mobility PT Goal 1 Goal / Goal Update *increase 2 minute walking test distance to 450', to improve community ambulation Target Visit 5
--- NOTE | 2024-10-13 16:10 | PTOPEVAL1 ---
Assessment and note entered by Meghan Marshall, PT Evaluation Information Assessment Status Evaluation ICD-10 Condition Codes (PT) Pain in left hip M25.552,Difficulty Walking R26.2, Abnormalities of gait and mobility R26.9,Weakness R53.1 Other ICD-10 Condition Codes ( OA of L hip M 16.12 PT) Onset Oct 2023 Subjective Information have had 2 injections into L hip- first one helped , second one- little relief, but was very active with getting her home ready to sell; x ray of L hip reports moderate DJD hip is feeling better now, since not doing as much activity; less mobility of L hip; activity: does water exercises, ~ 3x/wk; have a small trampoline at home for walking; have basement, but do not go down there regularly; GOAL: learn some exercises to get hip stronger and how to stretch my hip; Reported Pain Level Pain Score 0: Self Report Additional Pain Score Comments in the past week, have not had any pain in her L hip; with stretching her hip, pain 5/10 in groin pain eased with less activity and rest; was using heat and ice for pain; was hurting in groin area; did have clicks in hip, but no longer have; Assessment PT Clinical Summary Rahel has the diagnosis of L hip OA and weakness. X ray report stated moderate DJD of hip. The 2 injections have helped ease her pain. LE functional scale self rating of 29% limitation in activity level. She does not use an assistive device, is active and independent with home tasks and does regular fitness exercises in the water. has talked with her about a THR, but she does not want to have it yet. With the evaluation: she does not have any tenderness to touch over the hip; pain is increased with supine hip flexion and abduction motions; weakness of L hip flexion, abduction and extension motions; 2 minute walking test distance of 400'; gait pattern with increased lateral motion of trunk and hips, with decreased hip flexion with swing through phase; poor standing position of trunk, hips and LE's with bilateral ankle eversion positioning. Skilled PT services are indicated for modalities to decrease pain; therapeutic exercises to increase strength of L hip with education for HEP and pain control. Plan of Care Interventions Electrical Stimulation,Hot Pack/Cold Pack,Manual Therapy,Neuro Re-education,Patient/Caregiver Education,Therapeutic Activities,Therapeutic Exercise PT Services Indicated Yes Treatment Frequency and 1-2x/wk for 5 visits Duration These treatments will address the objective and functional deficits as defined above. The patient will be advanced safely and appropriately in order for the patient to progress towards his/her prior level of function. Additional exercises will be introduced and as well as a comprehensive home exercise program upon discharge, if needed, ?to ensure carryover of functional gains achieved in the clinic. This treatment plan has been reviewed and agreement upon by the patient.
--- NOTE | 2024-10-19 15:14 | PTOPDC ---
Assessment and note entered by Meghan Marshall, PT Assessment Status Discharge - Pt Not Present ICD-10 Condition Codes (PT) Pain in left hip M25.552,Difficulty Walking R26.2, Abnormalities of gait and mobility R26.9,Weakness R53.1 Other ICD-10 Condition Codes ( OA of L hip M 16.12 PT) Onset Oct 2023 Subjective Information pt called and canceled her PT treatments. Stated she was doing the exercises and did not need any more therapy. Assessment PT Clinical Summary Rahel received the PT evaluation on 10-13-24. And called today, to cancel therapy- as above. Discharge PT per pt request. The goals were not addressed. Plan of Care PT Services Indicated No
== END 2024-10-20 08:46 | disposition home or self-care (01) ==
LOC: ANHPT 14:42
PROVIDERS: PCP Family Medicine; Visit Provider Orthopaedic Surgery
DX: M16.12 Unilateral primary osteoarthritis, left hip (principal)
CPT/HCPCS: 97110; 97161; 97530

== ENCOUNTER 2024-11-09 10:19 | Outpatient (CLI) | payer OTHER, MEDICARE, SELFPAY ==
--- NOTE | ~2024-11-09 | US_ITS ---
ULTRASOUND ABDOMEN LIMITED (RIGHT UPPER QUADRANT) Clinical History: I86.8 - Varicose veins of other specified sites Comparison: None Technique: Right upper quadrant sonography Findings: Liver: Normal size. Normal echotexture. No intrahepatic biliary ductal dilatation. Normal hepatopedal flow main portal vein Common Duct: Normal caliber. 5 mm. Gallbladder: Removed. Pancreas: Obscured by bowel gas. Large abdominal wall varices. IMPRESSION: 1. No acute findings within right upper quadrant. 2. Large abdominal wall varices. Given history of IVC filter placement, concerning for thrombosis of IVC. Especially if bilateral lower extremity swelling. Recommend CT abdomen and pelvis with IV contrast. Reviewed, dictated and finalized at location R. IMPRESSION: 1. No acute findings within right upper quadrant. 2. Large abdominal wall varices. Given history of IVC filter placement, concer judei for thrombosis of IVC. Especially if bilateral lower extremity swelling. R ecommend CT abdomen and pelvis with IV contrast.
--- NOTE | ~2024-11-09 | MM_ITS ---
EXAMINATION: MM screening [facility] BI w christen HISTORY: Screening TECHNIQUE: Craniocaudal and mediolateral oblique 3-D tomosynthesis images were obtained and synthetic 2-D images were generated. CAD analysis was submitted and interpreted. COMPARISON: 03/27/2022 BREAST PARENCHYMAL COMPOSITION: There are scattered areas of fibroglandular density. FINDINGS: There is no evidence of suspicious mass, calcification, or architectural distortion to suggest malignancy. There has been no suspicious interval change. Multiple vascular vessels throughout the breasts similar to the prior study. IMPRESSION: 1. No mammographic evidence of malignancy. Recommend routine screening mammography in one year. BI-RADS Category 2: Benign finding(s) Reviewed, dictated and finalized at location Q. IMPRESSION: 1. No mammographic evidence of malignancy. Recommend routine screening mammogra phy in one year. BI-RADS Category 2: Benign finding(s)
== END 2024-11-09 10:20 | disposition home or self-care (01) ==
LOC: MICIMG 10:21
PROVIDERS: PCP Family Medicine; Visit Provider Family Medicine
DX: Z12.31 Encounter for screening mammogram for malignant neoplasm of breast (principal); I86.8 Varicose veins of other specified sites
CPT/HCPCS: 76705; 77063; 77067

== ENCOUNTER 2024-12-04 14:47 | Outpatient (CLI) | payer MEDICARE, SELFPAY ==
--- OUTSIDE RECORDS SUMMARY | 2024-11-26 08:00 | XMS_ITS ---
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 Name Role Phone Shani Duncan MD Primary Care Provider Royce Malone Unavailable [phone] Allergies Allergen (clinical drug ingredient) Drug/Non Drug [...] (substance) Penicillins Unknown Drug Allergy 06/04/2023 Active REASON FOR VISIT 3 month f/u Medications Medication SIG (Take, Route, Frequency, Duration) Notes Start Date End Date Status Fluticasone Propionate Diskus 50 MCG/ACT Aerosol Powder Breath Activated Inhalation *Reorder from [employer] for eRx and Interaction Alerts* 06/04/2023 Active Eliquis 2.5 MG Tablet Oral 06/04/2023 Active Nystatin 471340 UNIT/GM Cream External 06/04/2023 Active Trintellix 20 MG Tablet 1 tablet Oral Once a day; Duration: 90 days Active QUEtiapine Fumarate ER 200 MG Tablet Extended Release 24 Hour TAKE 1 TABLET BY MOUTH DAILY; Duration: 30 Not-Taking SEROquel XR 200 MG Tablet Extended Release 24 Hour Oral 06/04/2023 Active QUEtiapine Fumarate ER 300 MG Tablet Extended Release 24 Hour 1 tablet Oral Once a day; Duration: 90 days dose increase 11/26/2024 Active Trintellix 20 MG Tablet 1 tablet Oral Once a day; Duration: 90 days 11/26/2024 Active Levothyroxine Sodium 137 MCG Tablet Oral 06/04/2023 Not-Taking Levothyroxine Sodium 175 MCG Tablet Oral 06/04/2023 Active ALPRAZolam 1 MG Tablet 2.5 tablets Oral daily; Duration: 30 days take one tablet twice daily and one half tablet daily 11/26/2024 Active Social History Tobacco Use: Social History Observation Description Date Details (start date - stop date) Never Smoker NA - NA Sex Assigned At : Social History Observation Description Sex Assigned At Female Social History Tobacco Use: Social Info Question Answer Notes Tobacco Control (Standard) Tobacco use: Nonsmoker Vital Signs Blood pressure systolic 128 mm Hg 11/27/19 25 Blood pressure diastolic 83 mm Hg 025 Heart Rate 67 /min 11/26/2024 Height 60.00 in 11/26/2024 Weight 186 lbs 11/26/2024 BMI 36.32 kg/m2 11/26/2024 Height-cm 152.4 cm 11/26/2024 Weight-kg 84.37 kg 11/26/2024 Encounters Encounter Location Date Provider Diagnosis [facility] [address] [address] 11/26/2024 Royce Jacques Generalized anxiety disorder F41.1 ; Primary insomnia F51.01 and Major depressive disorder, recurrent, in full remission F33.42 Assessments Encounter Date Diagnosis (ICD Code) Assessment Notes Treatment Notes Treatment Clinical Notes Section Notes 11/26/2024 Generalized anxiety disorder (ICD-10 - F41.1) 11/26/2024 Primary insomnia (ICD-10 - F51.01) stable 11/26/2024 Major depressive disorder, recurrent, in full remission (ICD-10 - F33.42) Plan Of Treatment Medication Medication Name Sig Start Date Stop Date Notes QUEtiapine Fumarate ER 300 MG Tablet Extended Release 24 Hour 1 tablet Oral Once a day; Duration: 90 days 11/26/2024 dose increase Trintellix 20 MG Tablet 1 tablet Oral On ce a day; Duration: 90 days 11/26/2024 ALPRAZolam 1 MG Tablet 2.5 tablets Oral daily; Duration: 30 days 11/26/2024 Treatment Notes Assessment Notes Primary insomnia stable Next Appt Details Follow Up: 3 Months, Reason: f/u anxiety Provider Name:Royce hampton, 02/25/2025 01:00:00 PM, [address], [address], [place], [address], History and Physical Notes * HPI (History of Present Illness) Category Sub-Category Detail Notes Category Not es History of Presenting Problem Anxiety Onset: years ago. Persistent symptoms. advance care planning discuss Depression screening done Depression Onset: years ago, Re lieved by: exercise, music Depression screening PHQ-9 Little inte rest or pleasure in doing things: Not at all Feeling down, depressed, or hopeless: No t at all Trouble falling or staying asleep, or sl eeping too much: Not at all Feeling tired or having little energy: N ot at all Poor appetite or overeating: Not at all Feeling bad about yourself o r that you are a failure, or have let yourself or your family down: Not at all Trouble concentrating on thi ngs, such as reading the newspaper or watching television: Not at all Moving or speaking so slowly that other people could have noticed; or the opposite, being so fidgety or restless that you have been moving around a lot more than usual: Not at all Thoughts that you would be b kylah off or of hurting yourself in some way: Not at all Total Score: 0 Intervention Depression Screening Findings: N egative Follow-Up for Depression: Psychiatric fo llow-up Suicide Risk Assessment Performed: --aguilar e Functional Status Functional Status Assessment D ate of last completed Functional Status Assessment:: 11/26/2024 Fall Risk Assessment:: No falls in the p ast year Examination Category Sub-Category Detail Notes Category Not es Psychiatry Appearance: well-groomed, well-nourished , ... Attitude: cooperative Psychomotor activity: within normal rang e Attention: good Degree of awareness of surroundings: wit hin normal limits Orientation: awake, alert and anai ented x 3 Affect / mood: appropriate, full ra nge Speech / language: appropriate pitch/mo dulation, clear and coherent, normal rate, volume, and articulation (RVR), proper grammar used Insight: good Judgement: good Thought process: intact Thought content: appropriate Perceptual disorders: no perceptual diso rder noted Suicidal ideation: none Intellectual functioning: no impairment noted Memory status: no impairment noted Delusions: no Hallucinations: no Progress Notes * BHARATH POE LDOB:09/1960 (64 yo F)Acc No.[id number]:11/26/2024 Patient: BHARATH ANDREWS Provider: TAMARA VANEGAS :1960 A ge:64 Y S ex:Female Date:11/26/2024 Address:[address] [place] [address] , [place], [id number] Pcp:Shani Duncan MD Subjective: * Chief Complaints: * 3 month f/u * HPI: H istory of Presenting Problem: Depression O nset: years ago, Relieved by: exercise, music.? Anxiety O nset: years ago. Persistent symptoms. advance care planning discussDepression screening done. F unctional Status: Functional Status Assessment D ate of last completed Functional Status Assessment: 1 F all Risk Assessment: N o falls in the past year D epression screening: PHQ-9 L ittle interest or pleasure in doing things?Not at all F eeling down, depressed, or hopeless N ot at all T rouble falling or staying asleep, or sleeping too much N ot at all F eeling tired or having little energy N ot at all P oor appetite or overeating N ot at all F eeling bad about yourself or that you are a failure, or have let yourself or your family down N ot at all T rouble concentrating on things, such as reading the newspaper or watching television N ot at all M oving or speaking so slowly that other people could have noticed; or the opposite, being so fidgety or restless that you have been moving around a lot more than usual N ot at all T houghts that you would be better off or of hurting yourself in some way N ot at all T otal Score 0 Intervention D epression Screening Findings N egative F ollow-Up for Depression P sychiatric follow-up S uicide Risk Assessment Performed - -date * Medical History: Problems: Generalized anxiety disorder Primary insomnia Recurrent major depression in remission Severe recurrent major depression without psychotic features , Imported from Highlights: On January 24, 2024, the patient visited Dr. Oskar Martin at [facility] for a medication refill. During this visit, the patient was dealing with Thrombophlebitis, a condition characterized by blood clotting and inflammation in the veins. The patient's medical records also indicate a history of phlebitis, an inflammation of the veins. Medical History Verified * Social History: T obacco Use: T obacco Control (Standard) T obacco use: N onsmoker S ocial History Verified. * Medications: T akingQUEtiapine Fumarate ER 200 MG Tablet Extended Release 24 Hour 1 tablet Oral Once a day Levothyroxine Sodium 175 MCG Tablet Oral SEROquel XR 200 MG Tablet Extended Release 24 Hour Oral Fluticasone Propionate Diskus 50 MCG/ACT Aerosol Powder Breath Activated Inhalation , Notes to Pharmacist: *Reorder from [employer] for eRx and Interaction Alerts*Nystatin 964368 UNIT/GM Cream External Eliquis 2.5 MG Tablet Oral Trintellix 20 MG Tablet 1 tablet Oral Once a day ALPRAZolam 1 MG Tablet TAKE 1 TABLET BY MOUTH TWICE DAILY AND TAKE 1/2 TABLET BY MOUTH DAILY(2.5 TABLETS TOTAL DAILY) Taking QUEtiapine Fumarate ER 200 MG Tablet Extended Release 24 Hour 1 tablet Oral Once a day Taking Levothyroxine Sodium 175 MCG Tablet Oral Taking SEROquel XR 200 MG Tablet Extended Release 24 Hour Oral Taking Fluticasone Propionate Diskus 50 MCG/ACT Aerosol Powder Breath Activated Inhalation , Notes to Pharmacist: *Reorder from [employer] for eRx and Interaction Alerts*Taking Nystatin 586314 UNIT/GM Cream External Taking Eliquis 2.5 MG Tablet Oral Taking Trintellix 20 MG Tablet 1 tablet Oral Once a day Taking ALPRAZolam 1 MG Tablet TAKE 1 TABLET BY MOUTH TWICE DAILY AND TAKE 1/2 TABLET BY MOUTH DAILY(2.5 TABLETS TOTAL DAILY) Not-TakingLevothyroxine Sodium 137 MCG Tablet Oral QUEtiapine Fumarate ER 200 MG Tablet Extended Release 24 Hour TAKE 1 TABLET BY MOUTH DAILY Medication List reviewed and reconciled with the patientNot-Taking Levothyroxine Sodium 137 MCG Tablet Oral Not-Taking QUEtiapine Fumarate ER 200 MG Tablet Extended Release 24 Hour TAKE 1 TABLET BY MOUTH DAILY Medication List reviewed and reconciled with the patient * Allergies: S ULFA (SULFONAMIDE ANTIBIOTICS): Allergy - Onset Date 06/04/2023Macrobid: Allergy - Onset Date 06/04/2023Vicodin: Allergy - Onset Date 06/04/2023enicillins: Allergy - Onset Date 06/04/2023yesAllergies Verified. Objective: * Vitals: B P:128/83mm Hg, HR:67/min, Wt:186lbs, Wt-k.37 kg, Ht: 60.00 in, Ht-cm: 152.4 cm, BMI:36.32Index, Body Surface Area: 1.89. * Examination: P sychiatry: Appearance: w ell-groomed, well-nourished, .... Affect / mood: a ppropriate, full range. Attention: g ood. Attitude: c ooperative. Suicidal ideation: n one. Memory status: n o impairment noted. Degree of awareness of surroundings: w ithin normal limits.? Delusions: n o. Hallucinations: n o. Insight: g ood. Intellectual functioning: n o impairment noted. Judgement: g ood. Orientation: a wake, alert and oriented x 3. Perceptual disorders: n o perceptual disorder noted. Psychomotor activity: w ithin normal range. Speech / language: a ppropriate pitch/modulation, clear and coherent, normal rate, volume, and articulation (RVR), proper grammar used. Thought content: a ppropriate. Thought process: i ntact. Assessment: * Assessment: 1. G eneralized anxiety disorder - F41.1 (Primary) 2 . P rimary insomnia - F51.01 3 . M ajor depressive disorder, recurrent, in full remission - F33.42? Plan: * Treatment: 2. P rimary insomnia Notes: stable 3. M ajor depressive disorder, recurrent, in full remission Refill Trintellix Tablet, 20 MG, 1 tablet, Oral, Once a day, 90 days, 90 Tablet, Refills 1; S tart QUEtiapine Fumarate ER Tablet Extended Release 24 Hour, 300 MG, 1 tablet, Oral, Once a day, 90 days, 90 Tablet, Refills 1, Notes to Pharmacist: dose increase. * Procedure Codes: 1 036F TOBACCO [id number] BEHAV ASSMT W/SCORE & DOCD/STAND INSTRUMENT * Preventive Medicine: Counseling: A dvance Care Planning Date of last Advance Care Planning:?11/26/2024 ____ MIPS Type of advance care directives: D iscussed with patient , does not have AD Screenings: D epression screening Have you had a recent depression screening? Y es * Follow Up: 3 Months (Reason: f/u anxiety) Billing Information: * Visit Code: 92745 OFFICE OUTPATIENT VISIT 25 MINUTES DETAILED HISTORY AND EXAM/MODERATE MEDICAL DECISION MAKING. * Procedure Codes: 1036F TOBACCO NON-USER. 71318 BEHAV ASSMT W/SCORE & DOCD/STAND INSTRUMENT. * Electronic signature of TAMARA Escobedo on 12/04/2024 at 02:51 PM CDT Sign off status: Pending * Provider: TAMARA VANEGAS Date: Generated for Roel jolley/Alfa/Moraima on: 02:51 PM CDT
--- NOTE | ~2024-12-04 | CT_ITS ---
CT abdomen pelvis w con INDICATION:Z95.828 - Presence of other vascular implants and grafts . COMPARISON: None. TECHNIQUE: Axial images of the abdomen and pelvis were obtained following infusion of 100 mL Isovue 300. Dose optimization technique was utilized. FINDINGS: There are interstitial groundglass opacity at the right lung base. Moderate-sized hiatal hernia is noted. The liver parenchyma is unremarkable. No intrahepatic mass or ductal dilatation is evident. The patient has had a cholecystectomy. The pancreas and spleen are normal in appearance. The adrenal glands are symmetric in size. The kidneys demonstrate symmetric uptake and excretion of contrast. No cystic mass is evident. There is no solid mass. There is no hydronephrosis. Evaluation of the stomach and bowel loops are limited due to lack of oral contrast. The appendix is not visualized however no secondary signs of appendicitis are identified. There is fat-containing ventral wall hernia. The bladder and rectum are normal. No free intraperitoneal fluid or air is evident. There is no significant retroperitoneal lymphadenopathy. The aorta, visceral vessels and renal arteries demonstrate normal caliber and patency. IVC filter is noted. The lower thoracic and lumbar vertebrae are in normal alignment. IMPRESSION: Moderate size hiatal hernia. Fat-containing ventral wall hernia. All CT scans at this facility are performed using low dose modulation techniques as appropriate to perform exam including the following: automated exposure control; use of iterative reconstruction technique; adjustment of the mA and/or kV according to patient size (this includes techniques or standardized protocols for targeted exams where dose is matched to indication/reason for exam). Reviewed, dictated and finalized at location S. IMPRESSION: Moderate size hiatal hernia. Fat-containing ventral wall hernia. All CT scans at this facility are performed using low dose modulation techniqu es as appropriate to perform exam including the following: automated exposure c ontrol; use of iterative reconstruction technique; adjustment of the mA and/or kV according to patient size (this includes techniques or standardized protocol s for targeted exams where dose is matched to indication/reason for exam).
[2024-12-04 15:29] LABS: Estimated Glomerular Filt Rate 41
== END 2024-12-04 14:48 | disposition home or self-care (01) ==
PROVIDERS: PCP Student in an Organized Health Care Education/Training Program; Visit Provider Student in an Organized Health Care Education/Training Program
DX: K44.9 Diaphragmatic hernia without obstruction or gangrene (principal); K43.9 Ventral hernia without obstruction or gangrene; Z95.828 Presence of other vascular implants and grafts; I86.8 Varicose veins of other specified sites
CPT/HCPCS: 74177; Q9967

== ENCOUNTER 2024-12-09 13:59 | Outpatient (CLI) | payer MEDICARE, SELFPAY ==
--- OUTSIDE RECORDS SUMMARY | 2000-09-13 04:15 | XMS_ITS | Continuity of Care Document ---
Author Organization [facility] Address [id number] [place] [address] [place] [address] Phone Care Team Providers Care Soldering Technician Name Role Phone David OD, Dg Unavailable Unavailable Advance Directives Directive Yes / No Effective Date File Name No Information Encounters Encounter Description Practice Location Reason(s) For Visit Diagnoses Date Provider Providers Copied on Encounter [facility], [address], [place], [place], [id number], [place] tel:[phone] [facility] [place] No Information Aug-0 3-200 1 David OD Dg. [address] , [address], [place], [address], [place]. tel:[phone] Family History Family Member Type Diagnosis Age At Onset No Information Payers Payer name Insurance type Covered green party ID Authoriza tion(s) No Information Social History Type Description Quantity Date Captured Comments Sex Female Smoking Status No Information Chief Complaint And Reason For Visit No Information Reason For Referral Reason For Referral No Information History Of Present Illness Encounter Date Complaint History Of Prese nt Illness No Information Functional Status Date Functional Assessmen t No Information Instructions Date Instruction Additional Infor mation No Information Assessments Type Assessment Date No Information Patient Care Teams Name Effective Dates (start - stop) Status Members No Information
--- OUTSIDE RECORDS SUMMARY | 2024-11-26 08:00 | XMS_ITS ---
Author Organization [facility] As [employer] Address [address] [place] [address] Care Team Providers Care Instructor Adjunct Pharmacy Technician Name Role Phone Shani Duncan MD Primary Care Provider Royce Malone Unavailable [phone] Allergies Allergen (clinical drug ingredient) Drug/Non Drug [...] Aerosol Powder Breath Activated Inhalation *Reorder from [employer] for eRx and Interaction Alerts* 06/04/2023 Active Eliquis 2.5 MG Tablet Oral 06/04/2023 Active Nystatin 377970 UNIT/GM Cream External 06/04/2023 Active Trintellix 20 [...] 11/26/2024 Encounters Encounter Location Date Provider Diagnosis [facility] [address] [address] 11/26/2024 Royce Jacques Generalized anxiety disorder F41.1 [...] anxiety Provider Name:Royce hampton, 02/25/2025 01:00:00 PM, [address], [address], [place], [address], History and Physical Notes * HPI (History [...] * BHARATH POE LDOB:09/1960 (64 yo F)Acc No.[id number]:11/26/2024 Patient: BHARATH ANDREWS Provider: TAMARA VANEGAS :1960 A ge:64 Y S ex:Female Date:11/26/2024 Address:[address] [place] [address] , [place], [id number] Pcp:Shani Duncan MD Subjective: * Chief Complaints: [...] the patient visited Dr. Oskar Martin at [facility] for a medication refill. During this visit, [...] Inhalation , Notes to Pharmacist: *Reorder from [employer] for eRx and Interaction Alerts*Nystatin 582047 UNIT/GM Cream External Eliquis 2.5 MG Tablet [...] Inhalation , Notes to Pharmacist: *Reorder from [employer] for eRx and Interaction Alerts*Taking Nystatin 657591 UNIT/GM Cream External Taking Eliquis 2.5 MG [...] increase. * Procedure Codes: 1 036F TOBACCO [id number] BEHAV ASSMT W/SCORE & DOCD/STAND INSTRUMENT * Preventive Medicine: Counseling: A dvance Care Planning Date of last Advance Care Planning:?11/26/2024 ____ MIPS Type of advance care directives: D iscussed with patient , does not have AD Screenings: D epression screening Have you had a recent depression screening? Y es * Follow Up: 3 Months (Reason: f/u anxiety) Billing Information: * Visit Code: 35596 OFFICE OUTPATIENT VISIT 25 MINUTES DETAILED HISTORY AND EXAM/MODERATE MEDICAL DECISION MAKING. * Procedure Codes: 1036F TOBACCO NON-USER. 41944 BEHAV ASSMT W/SCORE & DOCD/STAND INSTRUMENT. * Electronic signature of TAMARA Escobedo on 12/09/2024 at 03:43 PM CDT Sign off status: Pending * Provider: ATMARA VANEGAS Date: Generated for Roel jolley/Alfa/Moraima on: 03:43 PM CDT
--- NOTE | ~2024-12-09 | XR_ITS ---
EXAMINATION: XR lg joint inject/asp w image DATE: 12/09/2024 14:56 INDICATION: Left hip arthritis with left hip pain TECHNIQUE: A time-out was performed to verify the patient's name, date of , and procedure to be performed. The procedure including the risks, benefits, and alternatives was discussed with the patient. Risks discussed included bleeding and infection. The patient understood the risks and agreed to proceed. The skin overlying the left hip joint was prepped and draped in usual sterile fashion. Anesthetic was administered with 1% lidocaine subcutaneously. A 22 G needle was advanced under fluoroscopic guidance into the joint. Injection of 1 mL of Omnipaque 240 confirmed intra-articular position of the needle. Subsequently, injectate consisting of 3 mL a 2:1 mixture of 0.5% bupivacaine: 80 mg/mL Depo-Medrol for a total dosage of 80 mg Depo-Medrol was instilled. Washout of contrast was seen confirming intra-articular administration. The needle was removed and the entry site was cleaned and dr essed. There were no immediate complications. Fluoroscopy exposure time was 0.2 minutes. The total number of images was 2. Total DAP was 1.106 Gycm^2. FINDINGS: Real-time fluoroscopy demonstrates the needle in the left hip joint. Patient's pain prior to procedure:03/23. Patient's pain following the procedure: 02/20. IMPRESSION: 1. Successful left hip joint injection of local anesthetic and steroid with decrease in the patient's presenting pain. Reviewed, dictated and finalized at location A. IMPRESSION: 1. Successful left hip joint injection of local anesthetic and steroid with dec rease in the patient's presenting pain.
--- OUTSIDE RECORDS SUMMARY | 2024-12-09 15:43 | XMS_ITS | Clinical Summary ---
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 Name Role Phone Unavailable Primary Care Provider Unavailabl e Social History Tobacco Use Types Packs/Day Years Used Date Smoking Tobacco: Never Assessed Comments Unknown Sex and Gender Information Value Date Recorded Sex Assigned at Not on file Legal Sex Female 5:49 PM CDT Gender Identity Not on file Sexual Orientation Not on file Plan of Treatment Health Maintenance Due Date Last Done Comments Colorectal Cancer Screening Colonoscopy (10 Years) 1960 Hepatitis C 1976 DTaP, Tdap and Td Vaccines ( 1 - Tdap) 1977 Mammogram Screening 1998 Pneumococcal Vaccine: 50+ Ye ars (1 of 1 - PCV) 2008 Zoster Vaccines (1 of 2) 2008 Dexa Scan (General) 11/19/2023 COVID-19 Vaccine ( - 2024-2 6 season) 2024 Influenza Adult (#1) 2024 RSV Immunization or 60+ Years (1 - 1-dose 75+ series) 2033 Hepatitis A Vaccines Aged Out No long er eligible based on patient's age to complete this topic Meningococcal B Vaccine Aged Out No l onger eligible based on patient's age to complete this topic Meningococcal Vaccine Aged Out No sunshine elliott eligible based on patient's age to complete this topic RSV Immunizations Under 20 Months Aged Out No longer eligible based on patient's age to complete this topic
--- OUTSIDE RECORDS SUMMARY | 2024-12-09 15:43 | XMS_ITS | Clinical Summary ---
Author Organization [facility] Address [address] [place] [address] Care Team Providers Care Malt Liquors Sales Representative Name Role Phone Shani Duncan MD Primary Care Provider Allergies Active Allergy Reactions Criticality Noted Date [...] for Anxiety. Active fluticasone (FLONASE) 50 mcg/spray [place], Suspension Administer 2 Sprays in each nostril [...] 144.8 cm (4' 9) 12/26/2020 10:58 AM INTERNET NETWORK SPECIALIST Body Mass Index 38.09 12/26/2020 10:58 AM INTERNET NETWORK SPECIALIST Plan of Treatment Health Maintenance Due Date Last Done Comments Pre-Diabetes and Diabetes Screening 1960 DTAP/TDAP/TD VACCINES (1 - Tdap) 1977 BREAST CANCER SCREENING 1998 COLORECTAL SCREENING 11/19/2003 Colorectal Cancer Screening 11/19/2003 FIT-DNA Q 3 years 11/19/2003 FIT/FOBT Q 1 year 11/19/2003 Flex Sig/CT Colonography Q 5 years 11/19/2003 RSV VACCINE (60+ or ) (1 - Risk 50-74 years 1-dose series) 2008 ZOSTER VACCINE (1 of 2) 2008 PNEUMOCOCCAL VACCINE 50+ YEA RS (2 of 2 - PCV) 11/17/2011 11/16/2010 OSTEOPOROSIS SCREENING 11/19/2023 INFLUENZA VACCINE (#1) 2024 4, 12/13/2011, 11/16/2010 Insurance CIGNA PPO CIGNA PPO Care Teams Malt Liquors Sales Representative Relationship Specialty Start Date End Date Shani Duncan MD [address] [place] [id number] PCP - General Family Practice 04/24/23
--- OUTSIDE RECORDS SUMMARY | 2024-12-09 15:43 | XMS_ITS | Patient Health Record ---
Author Organization [facility] [employer] Address [address] [place] [address] Care Team Providers Care Neurology Professor Name Role Phone Shani Duncan MD Primary Care Provider Royce Malone Unavailable [phone] Allergies Allergen (clinical drug ingredient) Drug/Non Drug [...] (substance) Penicillins Unknown Drug Allergy 06/04/2023 Active Reason For Referral No Information Medications Medication SIG (Take, Route, Frequency, Duration) Notes Start Date End Date Status Fluticasone Propionate Diskus 50 MCG/ACT Aerosol Powder Breath Activated Inhalation *Reorder from [employer] for eRx and Interaction Alerts* 06/04/2023 Active SEROquel XR 200 MG Tablet Extended Release 24 Hour Oral 06/04/2023 Active ALPRAZolam 1 MG Tablet 2.5 tablets Oral daily; Duration: 30 days take one tablet twice daily and one half tablet daily 11/26/2024 Active Eliquis 2.5 MG Tablet Oral 06/04/2023 Active Nystatin 239293 UNIT/GM Cream External 06/04/2023 Active QUEtiapine Fumarate ER 300 MG Tablet Extended Release 24 Hour 1 tablet Oral Once a day; Duration: 90 days dose increase 11/26/2024 Active Trintellix 20 MG Tablet 1 tablet Oral Once a day; Duration: 90 days Active Trintellix 20 MG Tablet 1 tablet Oral Once a day; Duration: 90 days 11/26/2024 Active QUEtiapine Fumarate ER 200 MG Tablet Extended Release 24 Hour TAKE 1 TABLET BY MOUTH DAILY; Duration: 30 Not-Taking Levothyroxine Sodium 137 MCG Tablet Oral 06/04/2023 Not-Taking Levothyroxine Sodium 175 MCG Tablet Oral 06/04/2023 Active Immunizations Vaccine Route Administration Date Status Comme nts Influenza virus vaccine, quadrivalent (IIV4), split virus, 0.25 mL dosage Unknown 12/11/2015 Administered Influenza virus vaccine, quadrivalent (IIV4), split virus, 0.25 mL dosage Unknown 12/05/2016 Administered Influenza virus vaccine, quadrivalent (IIV4), split virus, 0.25 mL dosage Unknown 11/30/2017 Administered Influenza virus vaccine, quadrivalent (IIV4), split virus, 0.25 mL dosage Unknown 11/12/2018 Administered Influenza, injectable, MDCK, preservative free Unknown 12/24/2018 Administered Influenza, seasonal, injecta ble, preservative free, 3 yrs and above Unknown 12/05/2017 Administered Influenza, unspecified formulation Unknown 11/21/2011 A dministered Influenza, unspecified formulation Unknown 12/11/2012 A dministered Novel [id number], preservative free Unknown 12/04/2017 Administered Pfizer Biontech Covid-19 Vac cine 2nd dose Unknown 04/14/2020 Administered Pfizer Biontech Covid-19 Vac cine 2nd dose Unknown 05/05/2020 Administered Pfizer Biontech Covid-19 Vac cine 2nd dose Unknown 12/02/2020 Administered Social History Tobacco Use: Social History Observation Description Date Details (start date - stop date) Never Smoker NA - NA Sex Assigned At : Social History Observation Description Sex Assigned At Female Social History Tobacco Use: Social Info Question Answer Notes Tobacco Control (Standard) Tobacco use: Nonsmoker Additional Details Category Social Info Options Details Migrated Social History Migrated Social History Alcohol Intake: None 07/24/2018,Tobacco Years: Former smoker 10/23/2018 Problems Problem Type SNOMED Code ICD Code Onset Dates Problem Status W/U Status Risk Notes Problem Recurrent major depression in full remission (14806262) Major depressive disorder, recurrent, in full remission (F33.42) Active confirmed Problem Generalized anxiety disorder (44570504) Generalized anxiety disorder (F41.1) Active confirmed Problem Primary insomnia (5666190) Primary insomnia (F51.01) Active confirmed Vital Signs Heart Rate 67 /min 11/26/2024 Height-cm 152.4 cm 11/26/2024 Blood pressure diastolic 83 mm Hg 11/26/2024 Weight-kg 84.37 kg 11/26/2024 Height 60.00 in 11/26/2024 Blood pressure systolic 128 mm Hg 11/26/2024 Weight 186 lbs 11/26/2024 BMI 36.32 kg/m2 11/26/2024 Encounters Encounter Location Date Provider Diagnosis [facility] [employer] [facility] [address] [place] [address] 11/26/2024 Royce Jacques Generalized anxiety disorder F41.1 ; Primary insomnia F51.01 and Major depressive disorder, recurrent, in full remission F33.42 [facility] [employer] [facility] [address] [place] [address] 03/04/2024 Royce Jacques Generalized anxiety disorder F41.1 ; Primary insomnia F51.01 and Major depressive disorder, recurrent, in full remission F33.42 [employer] [facility] [address] [place] [address] 05/28/2024 Oryce Jacques Generalized anxiety disorder F41.1 ; Primary insomnia F51.01 and Major depressive disorder, recurrent, in full remission F33.42 [employer] [facility] [address] [place] [address] 08/27/2024 Royce Jacques Generalized anxiety disorder F41.1 ; Primary insomnia F51.01 and Major depressive disorder, recurrent, in full remission F33.42 [facility] [employer] [facility] [address] [place] [address] 01/03/2024 Royce Jacques Major depressive disorder, recurrent, in full remission F33.42 [facility] [employer] [facility] [address] [place] [address] 01/22/2024 Royce Jacques [facility] [employer] [facility] [address] [place] [address] 08/07/2024 Royce Jacques Generalized anxiety disorder F41.1 Assessments Encounter Date Diagnosis (ICD Code) Assessment Notes Treatment Notes Treatment Clinical Notes Section Notes 01/03/2024 Major depressive disorder, recurrent, in full remission (ICD-10 - F33.42) 03/04/2024 Generalized anxiety disorder (ICD-10 - F41.1) 05/28/2024 Generalized anxiety disorder (ICD-10 - F41.1) 08/07/2024 Generalized anxiety disorder (ICD-10 - F41.1) 08/27/2024 Generalized anxiety disorder (ICD-10 - F41.1) 11/26/2024 Generalized anxiety disorder (ICD-10 - F41.1) 11/26/2024 Primary insomnia (ICD-10 - F51.01) stable 08/27/2024 Primary insomnia (ICD-10 - F51.01) stable 05/28/2024 Primary insomnia (ICD-10 - F51.01) stable 03/04/2024 Primary insomnia (ICD-10 - F51.01) stable 05/28/2024 Major depressive disorder, recurrent, in full remission (ICD-10 - F33.42) 03/04/2024 Major depressive disorder, recurrent, in full remission (ICD-10 - F33.42) 08/27/2024 Major depressive disorder, recurrent, in full remission (ICD-10 - F33.42) 11/26/2024 Major depressive disorder, recurrent, in full remission (ICD-10 - F33.42) 03/04/2024 Other 1. Anxiety related to financial [...] participating in social activities, such as the [employer] party she mentioned. - Discuss the possibility of [...] medications as prescribed. - Refill prescriptions at [facility] in [place]. Follow-up: - Schedule a follow-up appointment in [...] efforts have been made to correct them. 08/27/2024 Other Rahel Poe, a female patient with a history of hip pain and psychiatric medication use, presents for follow-up with recent fluoroscopy injection in left hip and ongoing pain management. Psychiatric Management Assessment: Patient reports positive mood and denies significant psychiatric symptoms. Current medication regimen includes Trintellix, Quetiapine ER, and Xanax. Recent lab work shows normal creatinine, liver function, and thyroid levels. Plan: - Continue Trintellix 20 mg - Continue Quetiapine ER 200 mg - Continue Xanax 2.5 tablets daily - Provide 90-day supply of medications for patient convenience - Follow up in 3 months the note is transcribed using speech recognition software. It is a reflection of a visit with the patient. It might have some inaccuracy, including medication names and transcribing errors, though efforts have been made to correct them. Plan Of Treatment Next Appt Details Provider Name:Royce hampton, 02/25/2025 01:00:00 PM, [address], [facility] [address], [place], [address], Insurance Providers Payer Name Payer Address Payer Phone Subscriber Number Group Number Insured Name Patient Relationship to Insured Coverage Start Date Coverage End Date Medicare-I l Medicare [address] [place] [address] [id number] RAHEL POE Self - patient is the insured Medical (General) History Medical History History ICD Code Problems: Generalized anxiety disorder Primary insomnia Recurrent major depression in remission Severe recurrent major depression withou t psychotic features , Imported from Highlights: On January 24, 2024, the patient visited Dr. Oskar Martin at [facility] for a medication refill. During this visit, the patient was dealing with Thrombophlebitis, a condition characterized by blood clotting and inflammation in the veins. The patient's medical records also indicate a history of phlebitis, an inflammation of the veins. undefined Surgical History Surgery Date(Month/Year) Hysterectomy (63643) Removal of gallbladder (62254) Any surgical history Cataract surgery (66762) 02/12/2008
== END 2024-12-09 14:00 | disposition home or self-care (01) ==
PROVIDERS: PCP Student in an Organized Health Care Education/Training Program; Visit Provider Orthopaedic Surgery
DX: M16.12 Unilateral primary osteoarthritis, left hip (principal)
CPT/HCPCS: 20610; 77002; J1010; Q9966